=== PATIENT | male | born 1945 | race Hispanic/Latino ===

== ENCOUNTER 2021-11-12 16:05 | Emergency (ER) | payer OTHER ==
[~2021-11-12] VITALS: Ht 165.1 cm; Wt 88.5 kg
[2021-11-12] MEDS ORDERED: GUAIFENESIN-CODEINE 5 ML SYRUP PO ONE (16:30)
[2021-11-12 16:40] LABS: BASOPHILS % (AUTO) 0.3 % (0.0-5.0); EOSINOPHILS % (AUTO) 1.4 % (0.0-8.0); HEMATOCRIT 38.2 % (42-54); LYMPHOCYTES % (AUTO) 11.3 % (21.0-51.0); MEAN CORPUSCULAR HEMOGLOBIN 29.8 pg (27.0-33.0); MEAN CORPUSCULAR HGB CONC 33.2 g/dL (32.0-36.0); MEAN CORPUSCULAR VOLUME 89.7 fL (79-99); MONOCYTES % (AUTO) 8.8 % (3.0-13.0); NEUTROPHILS % (AUTO) 77.9 % (40.0-77.0); PLATELET COUNT (AUTO) 234 K/uL (130-400); RED BLOOD CELL COUNT(AUTO) 4.26 MIL/uL (4.50-6.20); RED CELL DISTRIBUTION WIDTH 13.1 % (11.0-15.5); WHITE BLOOD COUNT (AUTO) 10.4 K/uL (4.8-10.8)
[2021-11-12 16:47] LABS: CREATININE 1.2 mg/dL (0.5-1.5); POTASSIUM 3.7 mmol/L (3.5-5.1)
[2021-11-12 16:52] LABS: ALBUMIN 3.7 g/dL (3.5-5.0); TOTAL PROTEIN, SERUM 7.3 g/dL (6.0-8.3)
[2021-11-12 17:01] LABS: B-TYPE NATRIURETIC PEPTIDE 103 pg/mL (0-100)
[2021-11-12 17:31] VITALS: BP 131/68
[2021-11-12] MEDS ORDERED: BENZ-39 PO (17:31)
[2021-12-05] MEDS ORDERED: METO-408 PO (17:45)
[2021-12-05] MEDS ORDERED: MV-M1TAB20 PO (17:45)
[2021-12-05] MEDS ORDERED: LEVO100C4 PO (17:45)
[2021-12-05] MEDS ORDERED: OMEP40CA21 PO (17:45)
[2021-12-05] MEDS ORDERED: SEMA3TAB4 PO (17:45)
[2021-12-05] MEDS ORDERED: BACL10TA PO (17:45)
[2021-12-05] MEDS ORDERED: AMLO-258 PO (17:45)
[2021-12-05] MEDS ORDERED: MONT10TA21 PO (17:45)
[2021-12-05] MEDS ORDERED: TAMS-1 PO (17:45)
[2021-12-05] MEDS ORDERED: TORS20TA4 PO (17:45)
[2021-12-05] MEDS ORDERED: ISOS120T14 PO (17:45)
[2021-12-05] MEDS ORDERED: ATOR40TA69 PO (17:45)
[2021-12-05] MEDS ORDERED: RANO500T2 PO (17:45)
[2021-12-05] MEDS ORDERED: METF-446 PO (17:45)
[2021-12-05] MEDS ORDERED: LOSA50TA64 PO (17:45)
[2021-12-05] MEDS ORDERED: AEC81 PO (17:45)
== END 2021-11-12 17:41 | disposition home or self-care (01) ==
LOC: EDH 16:05
DX: J06.9 Acute upper respiratory infection, unspecified (principal); Z20.822 Contact with and (suspected) exposure to COVID-19; E11.9 Type 2 diabetes mellitus without complications; E78.00 Pure hypercholesterolemia, unspecified; I10 Essential (primary) hypertension; Z95.1 Presence of aortocoronary bypass graft
CPT/HCPCS: 99285; 71045; 87635; 84484; 80053; 83880; 85025; 36415; 93005; C9803

== ENCOUNTER 2021-12-06 08:59 | Day surgery (SDC) | payer OTHER ==
[2021-12-02 13:17] LABS: BASOPHILS % (AUTO) 0.8 % (0.0-5.0); EOSINOPHILS % (AUTO) 3.3 % (0.0-8.0); HEMATOCRIT 40.6 % (42-54); LYMPHOCYTES % (AUTO) 26.6 % (21.0-51.0); MEAN CORPUSCULAR VOLUME 90.4 fL (79-99); NEUTROPHILS % (AUTO) 58.9 % (40.0-77.0); PLATELET COUNT (AUTO) 304 K/uL (130-400); RED BLOOD CELL COUNT(AUTO) 4.49 MIL/uL (4.50-6.20); RED CELL DISTRIBUTION WIDTH 13.2 % (11.0-15.5); WHITE BLOOD COUNT (AUTO) 7.6 K/uL (4.8-10.8)
[2021-12-02 13:30] LABS: INR 1.01 (0.85-1.15)
[2021-12-02 13:32] LABS: APPEARANCE,URINE CLEAR (CLEAR); BILIRUBIN,URINE NEGATIVE (NEGATIVE); COLOR,URINE YELLOW (YELLOW); GLUCOSE, URINE (UA) NEGATIVE (NEGATIVE); KETONES,URINE NEGATIVE (NEGATIVE); LEUKOCYTE ESTERASE ,URINE NEGATIVE (NEGATIVE); NITRATE,URINE NEGATIVE (NEGATIVE); OCCULT BLOOD,URINE NEGATIVE (NEGATIVE); PARTIAL THROMBOPLASTIN TIME 27.1 SEC (26.3-35.5); PROTEIN,URINE TRACE mg/dL (NEGATIVE)
[2021-12-02 13:33] LABS: POTASSIUM 4.1 mmol/L (3.5-5.1)
[2021-12-02 13:47] LABS: BACTERIA,URINE Rare /HPF (None Seen); RBC,URINE 0-1 /HPF (0-1); SQUAMOUS EPITHELIAL CELL,UR 0-2 /HPF (0-2); WBC,URINE None Seen /HPF (0-1)
[2021-12-05 17:40] VITALS: BP 145/70
[2021-12-06] VITALS (10 sets, daily range): BP systolic 110–146; BP diastolic 62–74
[~2021-12-06] VITALS: Ht 165.1 cm; Wt 86.5 kg
[~2021-12-06 08:59] MED LIST: 0.9% NACL 500ML IV.SOLN 500 ML IV SCH; AEC81 PO; AMLO-258 PO; ATOR40TA69 PO; BACL10TA PO; DiphenhydrAMINE HCL 50 MG/ML VIAL IVP SCH; ISOS120T14 PO; LEVO100C4 PO; LOSA50TA64 PO; METF-446 PO; METO-408 PO; MONT10TA21 PO; MV-M1TAB20 PO; OMEP40CA21 PO; RANO500T2 PO; SEMA3TAB4 PO; TAMS-1 PO; TORS20TA4 PO
[2021-12-06] MEDS ORDERED: 0.9%NACL 1000ML 1,000 ML IV ONE (09:19)
[2021-12-06] MEDS ORDERED: HEPARIN 10,000 UNIT/10ML (1,000 UNIT/ML) VIAL ONE (11:36)
[2021-12-06] MEDS ORDERED: NITROGLYCERIN 50MG VIAL ONE (11:36)
[2021-12-06] MEDS ORDERED: FENTANYL CITRATE PF 50 MCG/1 ML 2ML VIAL ONE (11:37)
[2021-12-06] MEDS ORDERED: IOHEXOL 350 MG/ML 100ML INFUS..BTL IV ONE (11:37)
[2021-12-06] MEDS ORDERED: IOHEXOL-350 50ML VIAL IV ONE (11:37)
[2021-12-06] MEDS ORDERED: MIDAZOLAM HCL 1 MG/ML 2ML VIAL ONE (11:37)
[2021-12-06] MEDS ORDERED: LIDOCAINE HCL 400MG/20ML VIAL ONE ×2 (11:38→12:23)
[2021-12-06] MEDS ORDERED: BIVALIRUDIN 250 MG/VIAL IV ONE (12:45)
[2021-12-06] MEDS ORDERED: 0.9%NACL 1000ML 1,000 ML IV SCH (14:00)
== END 2021-12-06 15:00 | disposition home or self-care (01) ==
LOC: DAH 08:59
PROVIDERS: ATTEND Internal Medicine Interventional Cardiology
DX: I25.119 Atherosclerotic heart disease of native coronary artery with unspecified angina pectoris (principal); I25.82 Chronic total occlusion of coronary artery; I25.810 Atherosclerosis of coronary artery bypass graft(s) without angina pectoris; I11.0 Hypertensive heart disease with heart failure; I50.32 Chronic diastolic (congestive) heart failure; E78.5 Hyperlipidemia, unspecified; J44.9 Chronic obstructive pulmonary disease, unspecified; E11.9 Type 2 diabetes mellitus without complications; E66.9 Obesity, unspecified; Z95.5 Presence of coronary angioplasty implant and graft; Z79.01 Long term (current) use of anticoagulants; Z79.890 Hormone replacement therapy
CPT/HCPCS: 80048; 85025; 85610; 85730; 82948 ×2; 81001; 36415; 93005; 93459; 93571; C1769 ×3; C1894 ×3; C1760; C1887; Q9965 ×2; 99156; 99157

== ENCOUNTER 2022-04-26 13:09 | Emergency (ER) | payer OTHER ==
[~2022-04-26] VITALS: Ht 165.1 cm; Wt 82.1 kg
[~2022-04-26 13:09] MED LIST changes: -0.9% NACL 500ML IV.SOLN 500 ML IV SCH; -DiphenhydrAMINE HCL 50 MG/ML VIAL IVP SCH; -MV-M1TAB20 PO; -RANO500T2 PO
[2022-04-26 14:08] LABS: BASOPHILS % (AUTO) 0.7 % (0.0-5.0); EOSINOPHILS % (AUTO) 3.7 % (0.0-8.0); HEMATOCRIT 37.7 % (42-54); LYMPHOCYTES % (AUTO) 26.9 % (21.0-51.0); MEAN CORPUSCULAR HEMOGLOBIN 30.5 pg (27.0-33.0); MEAN CORPUSCULAR HGB CONC 32.6 g/dL (32.0-36.0); MEAN CORPUSCULAR VOLUME 93.5 fL (79-99); MONOCYTES % (AUTO) 7.9 % (3.0-13.0); NEUTROPHILS % (AUTO) 60.1 % (40.0-77.0); PLATELET COUNT (AUTO) 261 K/uL (130-400); RED BLOOD CELL COUNT(AUTO) 4.03 MIL/uL (4.50-6.20); RED CELL DISTRIBUTION WIDTH 12.8 % (11.0-15.5); WHITE BLOOD COUNT (AUTO) 6.8 K/uL (4.8-10.8)
[2022-04-26 14:14] LABS: CREATININE 1.2 mg/dL (0.5-1.5); POTASSIUM 4.4 mmol/L (3.5-5.1)
[2022-04-26 14:23] LABS: ALBUMIN 3.9 g/dL (3.5-5.0); TOTAL PROTEIN, SERUM 7.1 g/dL (6.0-8.3)
[2022-04-26 15:16] LABS: APPEARANCE,URINE CLEAR (CLEAR); BILIRUBIN,URINE NEGATIVE (NEGATIVE); COLOR,URINE LIGHT-YELLOW (YELLOW); GLUCOSE, URINE (UA) NEGATIVE (NEGATIVE); KETONES,URINE NEGATIVE (NEGATIVE); LEUKOCYTE ESTERASE ,URINE NEGATIVE Leu/uL (NEGATIVE); NITRATE,URINE NEGATIVE (NEGATIVE); OCCULT BLOOD,URINE NEGATIVE (NEGATIVE); PROTEIN,URINE NEGATIVE (NEGATIVE); UROBILINOGEN,URINE 0.2 mg/dL (0.2-1.0)
[2022-04-26 15:17] LABS: MUCUS,URINE RARE LPF (None Seen)
[2022-04-26] MEDS ORDERED: FAMOTIDINE 20MG VIAL IV ONE (15:30)
[2022-04-26] MEDS ORDERED: LIDOCAINE HCL 2% VISCOUS 15 ML UDCUP PO ONE (15:30)
[2022-04-26] MEDS ORDERED: MAG/ALUM/SIMETH 30 ML UDCUP PO ONE (15:30)
[2022-04-26] MEDS ORDERED: SOLU-MEDROL 125MG VIAL IVP ONE (18:30)
[2022-04-26] MEDS ORDERED: METH4TAB3 PO (18:34)
[2022-04-26 18:56] VITALS: BP 117/61
== END 2022-04-26 19:02 | disposition home or self-care (01) ==
LOC: EDH 13:09
DX: M94.0 Chondrocostal junction syndrome [Tietze] (principal); I10 Essential (primary) hypertension; E78.00 Pure hypercholesterolemia, unspecified; E11.9 Type 2 diabetes mellitus without complications; Z79.82 Long term (current) use of aspirin; Z79.84 Long term (current) use of oral hypoglycemic drugs; Z79.899 Other long term (current) drug therapy; Z95.1 Presence of aortocoronary bypass graft
CPT/HCPCS: 99285; 96374; 71045; 96375; 84484 ×2; 80053; 85025; 81001; 36415; 93005; J3490; J2930

== ENCOUNTER 2022-12-24 18:02 | Emergency (ER) | payer OTHER ==
[~2022-12-24] VITALS: Ht 165.1 cm; Wt 81.6 kg
[~2022-12-24 18:02] MED LIST changes: +MONT-46 PO; -MONT10TA21 PO; +NITR0.4T50 SL; +RANO10005 PO
[2022-12-24 18:34] LABS: BASOPHILS # (AUTO) 0.06 K/uL (0.00-0.20); BASOPHILS % (AUTO) 0.7 % (0.0-5.0); EOSINOPHILS # (AUTO) 0.36 K/uL (0.00-0.70); EOSINOPHILS % (AUTO) 4.1 % (0.0-8.0); IMMATURE GRANULOCYTE ABSOLUTE 0.03 K/uL (0-1); LYMPHOCYTES # (AUTO) 1.7 K/uL (1.0-4.8); LYMPHOCYTES % (AUTO) 19.5 % (21.0-51.0); MEAN CORPUSCULAR HEMOGLOBIN 31.4 pg (27.0-33.0); MEAN CORPUSCULAR HGB CONC 33.8 g/dL (32.0-36.0); MONOCYTES % (AUTO) 11.6 % (3.0-13.0); NEUTROPHILS # (AUTO) 5.6 K/uL (1.8-7.7); NEUTROPHILS % (AUTO) 63.8 % (40.0-77.0); PLATELET COUNT (AUTO) 244 K/uL (130-400); RED BLOOD CELL COUNT(AUTO) 3.44 MIL/uL (4.50-6.20); RED CELL DISTRIBUTION WIDTH 12.3 % (11.0-15.5); WHITE BLOOD COUNT (AUTO) 8.9 K/uL (4.8-10.8)
[2022-12-24 18:43] LABS: CREATININE 1.9 mg/dL (0.5-1.5); POTASSIUM 3.1 mmol/L (3.5-5.1)
[2022-12-24 18:48] LABS: ALBUMIN 3.5 g/dL (3.5-5.0); BILIRUBIN,TOTAL 0.4 mg/dL (0.2-1.0); TOTAL PROTEIN, SERUM 6.8 g/dL (6.0-8.3)
[2022-12-24 18:57] LABS: APPEARANCE,URINE CLEAR (CLEAR); BILIRUBIN,URINE NEGATIVE (NEGATIVE); COLOR,URINE LIGHT-YELLOW (YELLOW); GLUCOSE, URINE (UA) 30 mg/dL (NEGATIVE); KETONES,URINE NEGATIVE (NEGATIVE); LEUKOCYTE ESTERASE ,URINE NEGATIVE Leu/uL (NEGATIVE); NITRATE,URINE NEGATIVE (NEGATIVE); OCCULT BLOOD,URINE NEGATIVE (NEGATIVE); PH,URINE 5.5 (5.0-8.0); PROTEIN,URINE NEGATIVE (NEGATIVE); UROBILINOGEN,URINE 0.2 mg/dL (0.2-1.0)
[2022-12-24 19:06] LABS: ADD UA MICROSCOPIC YES
[2022-12-24 19:09] LABS: BACTERIA,URINE RARE /HPF (None Seen); MUCUS,URINE RARE LPF (None Seen); RBC,URINE 0-1 /HPF (0-1)
[2022-12-24] MEDS ORDERED: TAMS-1 PO (20:24)
[2022-12-24] MEDS ORDERED: POTASSIUM BICARB/CIT AC 25 MEQ TABLET.EFF PO ONE (20:30)
[2022-12-24] MEDS ORDERED: TAMSULOSIN HCL 0.4 MG CAP.ER.24H PO ONE (20:30)
[2022-12-24 20:31] VITALS: BP 132/68; PULSE 66; RESP 16; O2SAT 98
== END 2022-12-24 20:58 | disposition home or self-care (01) ==
LOC: EDH 18:02
DX: R33.9 Retention of urine, unspecified (principal); E87.6 Hypokalemia; E11.9 Type 2 diabetes mellitus without complications; E78.00 Pure hypercholesterolemia, unspecified; I10 Essential (primary) hypertension; Z79.82 Long term (current) use of aspirin; Z79.84 Long term (current) use of oral hypoglycemic drugs; Z79.890 Hormone replacement therapy; Z79.899 Other long term (current) drug therapy; Z95.1 Presence of aortocoronary bypass graft
CPT/HCPCS: 36415; 80053; 81001; 83735; 84153; 85025

== ENCOUNTER 2023-01-02 07:56 | Emergency (ER) | payer OTHER ==
[~2023-01-02] VITALS: Ht 165.1 cm; Wt 84.4 kg
[2023-01-02 08:50] LABS: APPEARANCE,URINE CLEAR (CLEAR); BILIRUBIN,URINE NEGATIVE (NEGATIVE); GLUCOSE, URINE (UA) NEGATIVE (NEGATIVE); KETONES,URINE NEGATIVE (NEGATIVE); LEUKOCYTE ESTERASE ,URINE NEGATIVE Leu/uL (NEGATIVE); NITRATE,URINE NEGATIVE (NEGATIVE); OCCULT BLOOD,URINE NEGATIVE (NEGATIVE); PH,URINE 5.5 (5.0-8.0); PROTEIN,URINE NEGATIVE (NEGATIVE); UROBILINOGEN,URINE 0.2 mg/dL (0.2-1.0)
[2023-01-02 08:55] LABS: BASOPHILS # (AUTO) 0.05 K/uL (0.00-0.20); BASOPHILS % (AUTO) 0.6 % (0.0-5.0); EOSINOPHILS # (AUTO) 0.18 K/uL (0.00-0.70); HEMATOCRIT 34.4 % (42-54); IMMATURE GRANULOCYTE ABSOLUTE 0.06 K/uL (0-1); LYMPHOCYTES % (AUTO) 11.2 % (21.0-51.0); MEAN CORPUSCULAR HEMOGLOBIN 31.6 pg (27.0-33.0); MEAN CORPUSCULAR HGB CONC 33.4 g/dL (32.0-36.0); MEAN CORPUSCULAR VOLUME 94.5 fL (79-99); MONOCYTES # (AUTO) 0.7 K/uL (0.1-1.0); MONOCYTES % (AUTO) 7.5 % (3.0-13.0); NEUTROPHILS # (AUTO) 6.9 K/uL (1.8-7.7); PLATELET COUNT (AUTO) 290 K/uL (130-400); RED BLOOD CELL COUNT(AUTO) 3.64 MIL/uL (4.50-6.20); RED CELL DISTRIBUTION WIDTH 12.4 % (11.0-15.5); WHITE BLOOD COUNT (AUTO) 8.8 K/uL (4.8-10.8)
[2023-01-02 08:57] LABS: ADD UA MICROSCOPIC NO; COLOR,URINE LIGHT-YELLOW (YELLOW)
[2023-01-02 09:04] LABS: CREATININE 1.5 mg/dL (0.5-1.5); POTASSIUM 3.5 mmol/L (3.5-5.1)
[2023-01-02 09:57] VITALS: BP 124/60; PULSE 70; RESP 16; O2SAT 99
[2023-01-02] MEDS ORDERED: HYDR25SU11 RC (10:13)
[2023-01-02] MEDS ORDERED: HYDR30CR79 RC (10:13)
== END 2023-01-02 10:45 | disposition home or self-care (01) ==
LOC: EDH 07:56
DX: R33.9 Retention of urine, unspecified (principal); E11.9 Type 2 diabetes mellitus without complications; E78.00 Pure hypercholesterolemia, unspecified; I10 Essential (primary) hypertension; Z79.82 Long term (current) use of aspirin; Z79.84 Long term (current) use of oral hypoglycemic drugs; Z79.890 Hormone replacement therapy; Z79.899 Other long term (current) drug therapy; Z95.1 Presence of aortocoronary bypass graft
CPT/HCPCS: 36415; 80048; 81003; 85025

== ENCOUNTER 2023-10-09 05:58 | Day surgery (SDC) | payer OTHER ==
[~2023-10-09] VITALS: Ht 165.1 cm; Wt 83.5 kg
[2023-10-09] VITALS (12 sets, daily range): BP systolic 122–151; BP diastolic 61–76; PULSE 51–60; RESP 10–16
[~2023-10-09 05:58] MED LIST changes: -ATOR40TA69 PO; +CLOP-31 PO; +DOCU100T PO; +FAMO20TA8 PO; +FERR-63 PO; +HYDR30CR79 RC; -ISOS120T14 PO; +LORA10TA7 PO; -NITR0.4T50 SL; -OMEP40CA21 PO; +PANT40TA54 PO; -RANO10005 PO; -SEMA3TAB4 PO; +TORS10TA18 PO; -TORS20TA4 PO; +TRAZ-185 PO; +VITAMIN D2 PO
[2023-10-09] MEDS: 0.9%NACL 1000ML 1,000 ML IV ONE (07:15)
[2023-10-09] MEDS ORDERED: PROPOFOL 10 MG/ML 20ML VIAL IV ONE (07:52)
== END 2023-10-09 09:40 | disposition home or self-care (01) ==
LOC: ENDO 05:58 → DAH 05:58 → ENDO 09:40
PROVIDERS: ATTEND Internal Medicine Gastroenterology
DX: D50.9 Iron deficiency anemia, unspecified (principal); K63.5 Polyp of colon; K62.1 Rectal polyp; K44.9 Diaphragmatic hernia without obstruction or gangrene; K57.30 Diverticulosis of large intestine without perforation or abscess without bleeding; K29.70 Gastritis, unspecified, without bleeding; I10 Essential (primary) hypertension; E11.9 Type 2 diabetes mellitus without complications; E78.2 Mixed hyperlipidemia; J44.9 Chronic obstructive pulmonary disease, unspecified; Z95.5 Presence of coronary angioplasty implant and graft; Z79.899 Other long term (current) drug therapy; Z90.89 Acquired absence of other organs; Z98.890 Other specified postprocedural states; Z98.41 Cataract extraction status, right eye; Z98.42 Cataract extraction status, left eye
CPT/HCPCS: 45385; 45380; 43239; 82948 ×2; J7030; J2704; A4620; A4215 ×2; A4223; A4222; A4221; A4663; A4606; J3490

== ENCOUNTER 2025-03-23 15:30 | Emergency (ER) | payer OTHER ==
[~2025-03-23] VITALS: Ht 165.1 cm; Wt 84.8 kg
[~2025-03-23 15:30] MED LIST changes: -HYDR30CR79 RC; -LEVO100C4 PO; +LEVO100C5 PO; -TAMS-1 PO; +TAMS-55 PO
--- NOTE | 2025-03-23 15:42 | ERN ---
ED Note History of Present Illness Stated Complaint: COUGH, SORE THROAT Chief Complaint: Cough Time Seen by MD: 15:36 Dictation: PATIENT IS A 79-YEAR-OLD MALE HERE WITH HIS DAUGHTER WITH COMPLAINTS OF FLU-LIKE SYMPTOMS TO INCLUDE COUGH, SHORTNESS A BREATH ON EXERTION FOR THE LAST 2-3 DAYS. HE HAS ALSO HAD A SORE THROAT. THE COUGH IS NONPRODUCTIVE. 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 SAW HIS PRIMARY CARE DOCTOR TODAY WHO GAVE HIM A BREATHING TREATMENT FOR WHEEZING AND HE STARTED HAVING CHEST PAIN SO IMMEDIATELY SWABBED HIM AND THEN SENT HIM TO EMERGENCY ROOM FOR FURTHER EVALUATION AND TREATMENT. HE IS CURRENTLY WHEEZING IN TRIAGE HOWEVER SATURATIONS ARE 100%. Allergies: Coded Allergies: No Known Drug Allergies (Verified Allergy, 02/26/13) Home Meds Active Scripts Albuterol Sulfate (Ventolin Hfa/Proventil Hfa/Proair Hfa) 90 Mcg Puff, 2 PUFF IH Q4H for WHEEZING, #1 INHALER 0 Refills Prov:GAMALIEL WASHINGTONP 03/23/25 Reported Medications Metoprolol Succinate (Metoprolol Succinate) 25 Mg Tab.er.24h, 25 MG PO BID, TAB 10/08/23 Loratadine (Claritin) 10 Mg Tab, 10 MG PO HS, TAB 10/08/23 [Vitamin D2] No Conflict Check, 5000 UNITS PO AM 10/08/23 Docusate Sodium (Docusate Sodium) 100 Mg Tablet, 100 MG PO HS, TAB 10/08/23 Famotidine (Famotidine) 20 Mg Tablet, 20 MG PO HS, TAB 24 Trazodone HCl (Trazodone HCl) 50 Mg Tablet, 50 MG PO HS, TAB 24 Pantoprazole Sodium (Pantoprazole Sodium) 40 Mg Tablet.dr, 40 MG PO AM, TAB 10/08/23 Losartan Potassium (Losartan Potassium) 50 Mg Tablet, 50 MG PO AM, TAB 24 Clopidogrel Bisulfate (Plavix) 75 Mg Tablet, 75 MG PO AM, TAB 24 Ferrous Sulfate (Feosol) 325 Mg (65 Mg Iron) Tablet, 325 MG PO AM, TAB 24 Torsemide (Torsemide) 10 Mg Tablet, 10 MG PO QODAY, TAB 10/08/23 Levothyroxine Sodium (Levothyroxine) 100 Mcg Capsule, 100 MCG PO DAILY, CAP 12/05/21 Amlodipine Besylate (Amlodipine Besylate) 10 Mg Tablet, 10 MG PO DAILY for 30 Days, #30 TAB 0 Refills 12/05/21 Montelukast Sodium (Singulair 10Mg) 10 Mg Tab, 10 MG PO DAILY, TAB 12/05/21 Aspirin (ASPIRIN 81 MG ECTAB) 81 Mg Ectab, 81 MG PO HS, TAB.EC 12/05/21 Tamsulosin HCl (Flomax) 0.4 Mg Cap.er.24h, 0.4 MG PO DAILY, CAPSULE.DR 12/05/21 Baclofen (Baclofen) 10 Mg Tablet, 10 MG PO DAILY, TAB 12/05/21 Metformin HCl (Metformin HCl) 1,000 Mg Tablet, 1000 MG PO BID, TAB 12/05/21 Past Medical History Past Medical History: Diabetes-Type II, High Cholesterol, Heart Disease, Hypertension, Prostatitis Additional Past Medical Hx: PROSTATE ISSUES Surgical History: CABG, Other Surgical History Other: LHC / STENTS / RIGHT SHOULDER / BILATERAL KNEE / LOW BACK Family History: Negative Social History: Negative RN Note Reviewed/Agreed w/PFSH: Yes Review of System Dictation CONSTITUTIONAL: NEGATIVE EXCEPT FOR HPI HEAD/FACE: NEGATIVE EXCEPT FOR HPI EENT: NEGATIVE EXCEPT FOR HPI RESPIRATORY: NEGATIVE EXCEPT FOR HPI COUGH WITH MILD SOB, CHEST PAIN GASTROINTESTINAL/ABDOMINAL: NEGATIVE EXCEPT FOR HPI GENITOURINARY: NEGATIVE EXCEPT FOR HPI MUSCULOSKELETAL: NEGATIVE EXCEPT FOR HPI INTEGUMENTARY: NEGATIVE EXCEPT FOR HPI NEUROLOGICAL/PSYCH: NEGATIVE EXCEPT FOR HPI HEMATOLOGIC/LYMPHATIC: NEGATIVE EXCEPT FOR HPI ALL SYSTEMS NEGATIVE, EXCEPT NOTED ABOVE. 13 POINT REVIEW OF SYSTEMS ASSESSED AND ALL NEGATIVE EXCEPT FOR ABOVE. Initial Vital Sign VS Vital Signs Date Time Temp Pulse Resp B/P (MAP) Pulse Ox O2 Delivery O2 Flow Rate FiO2 03/23/25 15:35 97.9 67 16 150/58 98 Room Air 0 Physical Exam Dictation VITAL SIGNS REVIEWED GENERAL APPEARANCE: ALERT, ORIENTED X 3, NO ACUTE DISTRESS, WELL DEVELOPED, NOURISHED. HEAD AND FACE: NON-TRAUMATIC. EYES: PERRL, PINK CONJUNCTIVAS, EYELID NO TRAUMA, ANTERIOR CHAMBER WITH ARCUS SENILIS. EARS: PINNAS INTACT AND NO SIGNS OF TRAUMA OR ERYTHEMA EAR CANALS CLEAR AND NO DISCHARGE TM NO ERYTHEMA NOSE: NO DISCHARGE, NO BLEEDING. OROPHARYNX: MOUTH NORMAL, TONGUE PINK, PHARYNX CLEAR,NO ERYTHEMA, TONSILS NO EXUDATES, NO ABSCESSES NOTED, MUCOUS MEMBRANE MOIST NECK: SUPPLE, NON-TENDER, NO THYROMEGALY, NO MASSES, NO JVD, NO BRUITS BREAST:DEFERRED CHEST:NO TENDERNESS, NO CREPITUS, NO PARADOXICAL MOVEMENT, NO RETRACTIONS LUNGS:CLEAR, WELL-VENTILATED, SYMMETRIC, NO RALES, NO WHEEZING, NO RHONCHI, NO STRIDOR, GOOD BREATH SOUNDS BILATERALLY HEART: REGULAR RATE, REGULAR RHYTHM, NO MURMUR, NO GALLOPS VASCULAR: TRACE PERIPHERAL EDEMA, ABDOMEN: SOFT, POSITIVE BOWEL SOUNDS, NONDISTENDED, NO GUARDING, NONTENDER, NO REBOUND, NO MASSES NO HEPATOMEGALY, NO SPLENOMEGALY, NO BRADEN'S SIGN, NO HERNIAS. RECTAL: DEFERRED GENITAL: DEFERRED NEUROLOGICAL: NORMAL SPEECH, MOTOR FUNCTION INTACT, SENSORY FUNCTION INTACT MUSCULOSKELETAL: NECK NONTENDER, FULL RANGE OF MOTION, BACK NONTENDER, FULL RANGE OF MOTION, EXTREMITIES: NONTENDER, FULL RANGE OF MOTION SKIN: COLOR PINK, DRY, NO TURGOR, NO RASH, NO LACERATIONS, NO ABRASIONS, NO CONTUSIONS. LYMPHATIC: DEFERRED Results (Laboratory/Radiology) Laboratory/Radiology Laboratory Tests Test 03/23/25 15:37 03/23/25 15:53 Influenza Type A Antigen Negative For Type A Influenza Type B Antigen Negative For Type B Group A Streptococcus Rapid negative (NEGATIVE) White Blood Count 9.8 K/uL (4.8-10.8) Red Blood Count 4.12 MIL/uL (4.50-6.20) L Hemoglobin 12.0 g/dL (14.0-18.0) L Hematocrit 38.4 % (42-54) L Mean Corpuscular Volume 93.2 fL (79-99) Mean Corpuscular Hemoglobin 29.1 pg (27.0-33.0) Mean Corpuscular Hemoglobin Concent 31.3 g/dL (32.0-36.0) L Red Cell Distribution Width 12.9 % (11.0-15.5) Platelet Count 226 K/uL (130-400) Mean Platelet Volume 10.5 fL (7.5-10.5) Immature Granulocyte % (Auto) 0.3 % (0-1) Neutrophils (%) (Auto) 70.2 % (40.0-77.0) Lymphocytes (%) (Auto) 15.9 % (21.0-51.0) L Monocytes (%) (Auto) 10.6 % (3.0-13.0) Eosinophils (%) (Auto) 2.4 % (0.0-8.0) Basophils (%) (Auto) 0.6 % (0.0-5.0) Neutrophils # (Auto) 6.9 K/uL (1.8-7.7) Lymphocytes # (Auto) 1.6 K/uL (1.0-4.8) Monocytes # (Auto) 1.0 K/uL (0.1-1.0) Eosinophils # (Auto) 0.24 K/uL (0.00-0.70) Basophils # (Auto) 0.06 K/uL (0.00-0.20) Absolute Immature Granulocyte (auto 0.03 K/uL (0-1) Nucleated Red Blood Cells 0.0 % (0.0-0.19) Sodium Level 142 mmol/L (136-145) Potassium Level 3.9 mmol/L (3.5-5.1) Chloride Level 103 mmol/L (101-111) Carbon Dioxide Level 27 mmol/L (21-32) Blood Urea Nitrogen 23 mg/dL (7-18) H Creatinine 1.8 mg/dL (0.5-1.3) H Glomerular Filtration Rate Calc 38 mL/min (>90) Random Glucose 125 mg/dL (70-105) H Total Calcium 9.5 mg/dL (8.5-10.1) Magnesium Level 1.70 mg/dL (1.80-2.40) L Troponin I High Sensitivity 60 ng/L (4-75) B-Type Natriuretic Peptide 457 pg/mL (0-100) H Labs Reviewed?: Yes EKG Comment: 1758/EKG SINUS RHYTHM/HEART RATE 67/AXIS NORMAL/RIGHT BUNDLE BRANCH BLOCK ED Course ED Course Orders Procedure Category Date Status Time Covid19 (Sars Antigen LAB 03/23/25 Logged Rapid) 15:39 B-Type Natriuretic LAB 03/23/25 Complete Peptide 15:39 Budesonide 0.5 Mg/2 PHA 03/23/25 Complete Ml Inh (Pulmicort 0. 15:39 Magnesium LAB 03/23/25 Complete 15:39 Troponin I High LAB 03/23/25 Complete Sensitivity 15:39 Basic Metabolic Panel LAB 03/23/25 Complete 15:39 Cbc With Differential LAB 03/23/25 Complete 15:39 Chest 1vw RAD 03/23/25 Resulted 15:39 12 Lead Ekg Tracing- EKG 03/23/25 Logged Technical 15:39 Rapid (Group A Strep) LAB 03/23/25 Complete 15:42 Influenza Type A & B, LAB 03/23/25 Complete Rapid 15:42 Furosemide 40 Mg PHA 03/23/25 Complete Tablet (Lasix 40mg 18:00 Current Medications Medications (Trade) Dose Ordered Sig/Yemi Route PRN Reason Start Time Stop Time Status Last Admin Dose Admin Budesonide (Pulmicort 0.5 Mg/2ml) 1 mg ONCE STAT IH 03/23/25 15:39 03/23/25 15:42 DC 03/23/25 16:17 Furosemide (LASix 40MG TAB) 40 mg ONCE ONCE PO 03/23/25 18:00 03/23/25 18:01 DC 03/23/25 19:35 Vital Signs Date Time Temp Pulse Resp B/P (MAP) Pulse Ox O2 Delivery O2 Flow Rate FiO2 03/23/25 16:18 68 20 03/23/25 15:35 97.9 67 16 150/58 98 Room Air 0 1912/PATIENT SATURATING 98 99% ON ROOM AIR. STATES HE FEELS BETTER AFTER TREATMENT WITH LASIX AND BUDESONIDE. DISCHARGED HOME TO FOLLOW UP WITH HIS PRIMARY CARE DOCTOR. HEART Score Response (Comments) Value EKG: Repolarization changes 1 Age: > 65yrs (+2) 2 Risk Factors: 1-2 risk factors (+1) 1 Initial Troponin: Normal limit (0) 0 Total 4 Medical Decision Making MDM MDM: DIFFERENTIAL DIAGNOSIS: PNEUMONIA/BRONCHITIS/ACS/AMI/ELECTROLYTE IMBALANCE/DEHYDRATION/SARS COVID./CHF RATIONALE: TESTS CONSIDERED AND ORDERED SECONDARY TO SHARED DECISION MAKING INCLUDE: EKG/LABS/RADIOLOGY PREVIOUS OUTSIDE RECORDS REVIEWED: OLD ER VISITS. RISK OF COMPLICATION AND/OR MORBIDITY OR MORTALITY OF PATIENT MANAGEMENT: NONE MEDICATIONS-PER MEDICATION RECONCILIATION NEED FOR HOSPITALIZATION: PATIENT DOES NOT MEET CRITERIA FOR HOSPITALIZATION. NONE NEED FOR EMERGENCY MAJOR/MINOR SURGERY: NO THERE ARE NO SOCIAL CONCERNS WITH THIS PATIENT. PRESCRIPTION DRUG MANAGEMENT ALBUTEROL PRESCRIPTIONS WILL INCLUDE SYMPTOMATIC CARE PATIENT'S PRIOR EXTERNAL MEDICAL RECORDS FROM OTHER ER VISITS WERE REVIEWED BY ME INDICATED. PRIOR TESTING AND RESULTS FROM PREVIOUS VISITS WERE REVIEWED. PRIOR TESTS WERE TAKEN INTO ACCOUNT WITH MEDICAL DECISION MAKING AND RESOURCE UTILIZATION, INDEPENDENT HISTORIAN/HISTORIANS WERE USED TO OBTAIN COMPLETE MEDICAL HISTORY. I INDEPENDENTLY INTERPRETED THE TEST THAT WERE PERFORMED, RESULTS WERE REVIEWED BY ME AND CONSIDERED FINDINGS ON RADIOLOGY IF ORDERED. MEDICAL MANAGEMENT AND EXAMINATION INTERPRETATION DISCUSSIONS WERE HAD BY ME WITH OTHER QUALIFIED HEALTHCARE PROFESSIONALS INDICATED FOR THE PATIENT'S CARE. DX & DISP Disposition: Discharge Departure Impression: Primary Impression: Viral URI with cough Additional Impressions: Elevated brain natriuretic peptide (BNP) level, Dehydration, Dyspnea Condition: Stable Scripts Benzonatate (Tessalon Perles) 100 Mg Cap 200 MG PO TID for cough, #60 CAP 0 Refills Prov: GAMALIEL WASHINGTONP 03/23/25 Albuterol Sulfate (Ventolin Hfa/Proventil Hfa/Proair Hfa) 90 Mcg Puff 2 PUFF IH Q4H for WHEEZING, #1 INHALER 0 Refills Prov: GAMALIEL WASHINGTONP 03/23/25 Additional Instructions: FOLLOW-UP WITH PRIMARY CARE PROVIDER IN 1 TO 2 DAYS. TAKE MEDICATIONS DIRECTED HERE IN THE EMERGENCY ROOM. OKAY TO CONTINUE HOME MEDICATIONS UNLESS OTHERWISE DISCUSSED DURING YOUR VISIT IN THE EMERGENCY ROOM TODAY. RETURN TO YOUR NEAREST EMERGENCY ROOM IF SYMPTOMS WORSEN OR IF THERE IS NO IMPROVEMENT. CALL 911 IF YOU NEED IMMEDIATE ASSISTANCE. TAKE TYLENOL OR MOTRIN [id number] NEEDED AND IF NO CONTRAINDICATIONS ARE PRESENT. INCREASE ORAL HYDRATION. A WOUND CULTURE OR URINE CULTURE WAS ORDERED HERE IN THE EMERGENCY ROOM DEPARTMENT PLEASE FOLLOW-UP WITH PRIMARY CARE PROVIDER AND ADVISE THEM TO GET REPEAT PORTS FROM OUR FACILITY. IF YOU HAD ANY RUTHIE WRAP/SPLINTS THAT WERE APPLIED HERE, PLEASE DO NOT REMOVE THEM UNTIL YOU SEE YOUR PRIMARY CARE OR SPECIALTY. USE ALBUTEROL INHALER EVERY 4 HOURS WHILE AWAKE FOR THREE DAYS. CONTINUE ALL YOUR MEDICATIONS AND TREATMENTS AT HOME. SEE YOUR PRIMARY CARE DOCTOR FOR FOLLOW UP. Referrals: LUKE AUGUSTIN JR, MD (PCP) Time of Disposition: 19:14 I have reviewed the case, and I agree with, Diagnosis and Plan GAMALIEL WASHINGTON Mar 23, 2025 15:42
[2025-03-23 15:59] LABS: RAPID GROUP A STREP negative (NEGATIVE)
[2025-03-23 16:01] LABS: IMMATURE GRANULOCYTE ABSOLUTE 0.03 K/uL (0-1); NUCLEATED RED BLOOD CELLS 0.0 % (0.0-0.19); PLATELET COUNT (AUTO) 226 K/uL (130-400); RED BLOOD CELL COUNT(AUTO) 4.12 MIL/uL (4.50-6.20); RED CELL DISTRIBUTION WIDTH 12.9 % (11.0-15.5); WHITE BLOOD COUNT (AUTO) 9.8 K/uL (4.8-10.8)
[2025-03-23 16:09] LABS: INFLUENZA TYPE A Negative For Type A (NEGATIVE); INFLUENZA TYPE B Negative For Type B (NEGATIVE)
[2025-03-23 16:09] LABS: CREATININE 1.8 mg/dL (0.5-1.3); GLOMERULAR FILTR. RATE CALC 38.0 mL/min (>90); GLUCOSE,RANDOM 125.0 mg/dL (70-105); SODIUM SERUM 142.0 mmol/L (136-145); UREA NITROGEN, BLOOD 23.0 mg/dL (7-18)
[2025-03-23] MEDS: BUDESONIDE 0.5 MG/2 ML INH IH STA (16:17)
[2025-03-23 16:18] VITALS: PULSE 68; RESP 20
--- NOTE | 2025-03-23 17:50 | HMCIMG ---
EXAM: CR Chest, 1 View. CLINICAL HISTORY: SHORTNESS A BREATH COMPARISON: None provided. FINDINGS: LUNGS: The lungs show no infiltrate or other acute finding. Mild bibasilar airspace disease is presumed to reflect atelectasis. PLEURAL SPACES: No evidence of pleural effusion or pneumothorax. MEDIASTINUM: The cardiomediastinal silhouette is within normal limits. BONES: No acute osseous abnormality. IMPRESSION: 1. No acute cardiopulmonary findings. /[place]
[2025-03-23] MEDS ORDERED: ALBUHFA IH (19:14)
[2025-03-23 19:50] VITALS: BP 161/103; PULSE 72; RESP 16; TEMP 98.6; O2SAT 96
[2025-03-23] MEDS ORDERED: BENZ-39 PO (19:51)
--- NOTE | 2025-03-23 19:56 | EKG ---
[facility] Test Date: 2025-03-23 Test Time: 15:40:57 Pat Name: MARTINA OLIVEROS Department: ED Room: Gender: M Dispatcher Clerk: [id number] : 1945 Requested By: GAMALIEL WASHINGTON Order Number: [id number] Reading MD: Measurements Intervals [place] Rate: 67 P: 22 ND: 197 QRS: -170 QRSD: 153 T: 28 QT: 422 QTc: 446 Interpretive Statements Sinus rhythm RBBB and LPFB No previous ECG available for comparison Please click the below link to view image of tracing.
== END 2025-03-23 19:53 | disposition home or self-care (01) ==
LOC: EDH 15:30
DX: J06.9 Acute upper respiratory infection, unspecified (principal); B97.89 Other viral agents as the cause of diseases classified elsewhere; R79.89 Other specified abnormal findings of blood chemistry; R06.00 Dyspnea, unspecified; E11.9 Type 2 diabetes mellitus without complications; E78.00 Pure hypercholesterolemia, unspecified; I11.9 Hypertensive heart disease without heart failure; I45.2 Bifascicular block; Z79.51 Long term (current) use of inhaled steroids; Z79.82 Long term (current) use of aspirin; Z79.84 Long term (current) use of oral hypoglycemic drugs; Z79.890 Hormone replacement therapy; Z79.899 Other long term (current) drug therapy; Z95.1 Presence of aortocoronary bypass graft
CPT/HCPCS: 36415; 71045; 80048; 83735; 83880; 84484; 85025; 87804; 87880; 93005; 94640; 99285